=== PATIENT | female | born 1945 | race Caucasian/White ===

== ENCOUNTER 2018-01-21 08:43 | Emergency (ER) | payer OTHER ==
[2018-01-21] MEDS ORDERED: IBUPROFEN 200 MG TAB PO ONE (09:12)
[2018-01-21] MEDS ORDERED: DIAZEPAM 5 MG TAB PO ONE (09:13)
--- NOTE | 2018-01-21 09:19 | EDPHY ---
H & P Time Seen by Provider: 01/21/18 09:00 HPI/ROS: This patient complains of left posterior lower rib pain after fall at 1:00 p.m. Yesterday at home. She explains that she was on top of a 1/2 foot Tupperware container using it is a step stool when it collapsed and she fell sideways landing on another top work container that was on the floor versus her left posterior ribs. She had immediate moderate pain and it"knocked the wind out of her". 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 She then had difficulty sleeping last night due to the pain and reports that worsened today particular with a deep breath-she describes associated feeling of muscle spasm intermittently in the same region described as a"gripping pain and". She has nausea when the pain becomes more severe. Her drove her in by private vehicle for further evaluation. ROS: No constitutional symptoms HEENT: No facial injuries. Musculoskeletal: No midline neck or back pain. Neuro: No numbness tingling, focal weakness, bowel or bladder incontinence. Integumentary: Abrasion to the left thumb from the fall. Pulmonary: No shortness of breath. No hemoptysis. Cardiovascular: Slight lightheadedness when she stepped out of bed this morning she attributes to increase in pain. None since. GI: Nausea but no abdominal pain. : No hematuria. 10 point ROS is otherwise negative Past Medical/Surgical History: Dyslipidemia. Osteoporosis Smoking Status: Never smoked Physical Exam: General Appearance: Alert, no distress. Eyes: Pupils equal and round no pallor or injection. ENT, Mouth: Mucous membranes moist. Respiratory: There are no retractions, lungs are clear to auscultation. The patient has left posterior rib tenderness rib 8 through 11 or so without associated crepitance. She also has pain the same area with anterior compression of her ribs. Cardiovascular: Regular rate and rhythm. No murmur gallop or rub. Gastrointestinal: Normoactive, soft, no organomegaly. No left upper quadrant tenderness or other tenderness. Neurological: GCS 15. She maintains normal light touch sensory exam bilateral upper and lower extremities. She maintains 5/5 strength in upper and lower extremities. Skin: Superficial abrasion to the left thumb with no bleeding. No full- thickness wound. Warm and dry, no rashes. Musculoskeletal: Neck is supple nontender. Extremities are symmetrical, full range of motion. Psychiatric: Mood and affect are normal DIFFERENTIAL DIAGNOSIS: After history and physical exam differential diagnosis was considered for rib fracture, other chest wall injury, pneumothorax, pulmonary contusion Constitutional: Initial Vital Signs Temperature (C) 36.7 C 01/21/18 08:56 Heart Rate 75 01/21/18 08:56 Respiratory Rate 14 01/21/18 08:56 Blood Pressure 149/77 H 01/21/18 08:56 O2 Sat (%) 96 01/21/18 08:56 O2 Delivery Mode Room Air Allergies/Adverse Reactions: No Known Allergies Allergy (Unverified 01/21/18 08:54) Home Medications: Medication Instructions Recorded Atorvastatin Calcium 01/21/18 Fosamax 35 MG 01/21/18 Lidocaine [Lidoderm] 1 each TP DAILY #15 adh..patch 01/21/18 Lipitor 01/21/18 Methocarbamol [Robaxin 750 mg (*)] 750 - 1,500 mg PO QID PRN #30 tab 01/21/18 traMADol [Ultram 50 mg (*)] 50 - 100 mg PO Q4 PRN #20 tab 01/21/18 MDM/Departure - MDM Imaging Results: Imaging Impressions Ribs w/Chest X-Ray 01/21/18 09:13 Impression: Probable nondisplaced posterior lateral left 8th rib fracture. Medications Given: Discontinued Medications Diazepam (Valium) 5 mg PO EDNOW ONE Stop: 01/21/18 09:14 Last Admin: 01/21/18 09:17 Dose: 5 mg Ibuprofen (Motrin) 400 mg PO EDNOW ONE Stop: 01/21/18 09:13 Last Admin: 01/21/18 09:17 Dose: 400 mg ED Course/Re-evaluation: Patient took 200 mg of ibuprofen this morning prior to arrival is given additional 400 mg of ibuprofen here and 5 mg of Valium with mild relief. I counseled the patient regarding her nondisplaced rib fracture. We ruled out pneumothorax, pulmonary contusion or other complicating factors. No clinical evidence that would suggest a splenic injury or other intra-abdominal injury. - Depart Disposition: Home, Routine, Self-Care Clinical Impression: Rib fracture Qualifiers: Encounter type: initial encounter Rib fracture type: single rib Fracture type: closed Laterality: left Qualified Code(s): S22.32XA - Fracture of one rib, left side, initial encounter for closed fracture Condition: Good Instructions: Rib Fracture (ED) Additional Instructions: Diagnosis: Left 8th rib fracture Plan: Ibuprofen -400 mg per 6 hr while awake OR Aleve 1-2 2 times a day. Methocarbamol muscle relaxant in addition as needed Lidoderm patches in addition as needed Methocarbamol muscle relaxant in addition as needed Tylenol in addition as needed Tramadol in addition if needed for pain that prevents sleep. No driving, alcohol or come tramadol. Take a deep breath every 10-15 minutes despite the pain to prevent secondary complication of pneumonia No heavy lifting. The worse of the symptoms typically last for 7-10 days that should gradually improve. Stand Alone Forms: Airline Excuse Prescriptions: Lidocaine [Lidoderm] 1 each TP DAILY #15 adh..patch Methocarbamol [Robaxin 750 mg (*)] 750 - 1,500 mg PO QID PRN #30 tab PRN Reason: Muscle Spasms traMADol [Ultram 50 mg (*)] 50 - 100 mg PO Q4 PRN #20 tab PRN Reason: breakthrough pain Referrals: Abdiel Eng DO [Primary Care Provider] - As per Instructions
[2018-01-21 10:05] VITALS: BP 142/78
== END 2018-01-21 10:02 | disposition home or self-care (01) ==
LOC: CED 08:43
DX: S22.32XA Fracture of one rib, left side, initial encounter for closed fracture (principal); W19.XXXA Unspecified fall, initial encounter; Y92.009 Unspecified place in unspecified non-institutional (private) residence as the place of occurrence of the external cause
CPT/HCPCS: 71101-PO